=== PATIENT | female | born 1995 | race Caucasian/White ===

== ENCOUNTER 2020-06-21 03:14 | Inpatient (IN) | payer BC, SELFPAY ==
[2020-06-21] VITALS (8 sets, daily range): BP systolic 105–128; BP diastolic 55–87; PULSE 67–93; RESP 16–20; TEMP 36–37.2; O2SAT 93–97; BMI 32.9
--- NOTE | 2020-06-21 | ECG_ITS ---
Test Reason : PRE ADMISSION Blood Pressure : / mmHG Vent. Rate : 063 BPM Atrial Rate : 063 BPM P-R Int : 144 ms QRS Dur : 100 ms QT Int : 446 ms P-R-T Axes : 017 050 027 degrees QTc Int : 456 ms Normal sinus rhythm Early repolarization Normal ECG No previous ECGs available Referred By: Aniyah Dumont Electronically Signed By:JENNIFER BETTENCOURT MD
--- NOTE | 2020-06-21 04:49 | PC.NURSE ---
Anoop Campa, pt's dad can be reached at [phone].
--- NOTE | 2020-06-21 05:29 | ED_ITS ---
HPI - Psych General Chief Complaint: Psychiatric Symptoms Stated Complaint: section 12 Time Seen by Provider: 06/21/20 05:25 Source: patient and EMS Mode of arrival: EMS Limitations: no limitations History of Present Illness HPI Narrative: patient comes to the emergency room, accompanied by [facility] police department and under Section 12. patient states that she has a plan of overdosing. Prior to arrival patient use half pack of heroin. MD complaint: suicidal ideation Related Data Home Medications Medication Instructions Recorded Confirmed clonidine HCl 0.2 mg PO BEDTIME 06/21/20 06/21/20 clonidine HCl 0.2 mg PO BID PRN 06/21/20 06/21/20 dextroamphetamine-amphetamine 20 mg PO TID 06/21/20 06/21/20 gabapentin 400 mg PO DAILY 06/21/20 06/21/20 gabapentin 800 mg PO BEDTIME 06/21/20 06/21/20 hydroxyzine pamoate 25 mg PO BID PRN 06/21/20 06/21/20 lorazepam 0.5 mg PO DAILY PRN 06/21/20 06/21/20 ropinirole 3 mg PO BEDTIME 06/21/20 06/21/20 sodium fluoride-pot nitrate 1 applic DENTAL BID 06/21/20 06/21/20 [PreviDent 5000 Sensitive] topiramate 50 mg PO BEDTIME 06/21/20 06/21/20 valacyclovir 500 mg PO DAILY 06/21/20 06/21/20 venlafaxine 75 mg PO DAILY 06/21/20 06/21/20 Allergies Allergy/AdvReac Type Severity Reaction Status Date / Time amoxicillin [From AUGMENTIN] Allergy Unknown HIVES Verified 06/21/20 03:47 clavulanic acid Allergy Unknown HIVES Verified 06/21/20 03:47 [From AUGMENTIN] nitrofurantoin Allergy Unknown HIVES Verified 06/21/20 03:47 [From MACROBID] Review of Systems Review of Systems: Constitutional : No Weight loss, No Fever, No Chills, No Night Sweats, No Fatigue, No Malaise ENT/Mouth : No Hearing loss, No Ear Pain, No Nasal Congestion, No Sinus Pain, No Hoarseness, No sore throat, No Rhinorrhea, No Swallowing Difficulty Eyes: No Eye Pain, No Swelling, No Redness, No Foreign Body, No Discharge, No Vision Changes Cardiovascular : No Chest Pain, No SOB, No Dyspnea on Exertion, No Orthopnea, No Edema, No Palpitations Respiratory : No Cough, No Sputum, No Wheezing, No Smoke Exposure, No Dyspnea Gastrointestinal : No Nausea, No Vomiting, No Diarrhea, No Constipation, No abdominal Pain, No Hematochezia, No Melena Genitourinary : no irregular bleeding, No Dysuria, No Urinary Frequency, No Hematuria, No Urinary Incontinence, No Urgency, No Flank Pain, No Urinary Flow Changes, No Hesitancy Musculoskeletal : No joint pain, No Myalgias, No Joint Swelling Skin : abrasion to right knee Neuro : No Weakness, No Numbness, No Paresthesias, No Loss of Consciousness, No Dizziness, No Headache Psych : depression, suicidal with plan Heme/Lymph: No Bruising, No Bleeding,No Lymphadenopathy Endocrine : No Polyuria, No Polydipsia, No Temperature Intolerance PMFSH Past Medical History Medical History Attention deficit disorder of adult with hyperactivity Endometriosis Gastroenteritis IVDU (intravenous drug user) Migraine Surgical History History of ankle surgery Social History Social History Alcohol intake: never Smoking Status: Current every day smoker Smoked in Last 30 Days: Yes Use of substances other than those prescribed or required for medical reasons: Yes Substance Use Type: Heroin and IV Drugs Substance Use Frequency: Daily Last Used Substance: Hours (ago) Advance Directives: No Advance Directives Information Provided: No Physical Exam Vital Signs: Vital Signs: Vital Signs Temp Pulse Resp BP Pulse Ox 06/21/20 03:33 98.2 F 93 18 116/79 97 Body Mass Index 32.9 Appearance: Alert. Oriented X3. No acute distress. Eyes: Pupils equal, round and reactive to light, mild horizontal nystagmus ENT: Pharynx normal. Neck: Normal inspection. Neck supple. No lymph nodes noted. No crepitus CVS: Normal heart rate and rhythm. Pulses normal. Normal S1 and S2 Respiratory: No respiratory distress. Breath sounds normal. No Wheezing. No rales Abdomen: Soft and nontender. No rigidity. No distention. good BS x4 Skin: Skin warm and dry. Normal skin color. Normal skin turgor. Extremities: No lower extremity edema. No lower extremity edema. No Lacerations. No Rash Neuro: Oriented X 3. No motor deficit. No sensory deficit. Moving all extermities. No slurred speech. Course Reevaluation(s) Reevaluation #1: when patient came in, she admitted to be suicidal, plan with o verluz marina, later patient changed her story that she is well and would like to go to rehab for drug addiction. [facility] consult pending. Sign-out given to Dr. Rodríguez [facility] - Psych Restraints Face to Face Assessment: Face to Face Assessment: Current Situation: After assessment of the patient, a review of the pertinent medical record and a discussion with nursing staff, I feel the patient requires a restrain intervention. Reaction To: [] Medical Condition: [] Behavioral State: [] Continued Need: [] Discharge Plan Discharge Clinical Impression: Suicidal ideation, Drug abuse Prescriptions: No Action venlafaxine 75 mg capsule,extended release 24hr 75 mg PO DAILY RF: 0 ropinirole 1 mg tablet 3 mg PO BEDTIME RF: 0 gabapentin 400 mg capsule 400 mg PO DAILY RF: 0 valacyclovir 500 mg tablet 500 mg PO DAILY RF: 0 clonidine HCl 0.2 mg tablet 0.2 mg PO BID PRN (Reason: Anxiety) RF: 0 lorazepam 0.5 mg tablet 0.5 mg PO DAILY PRN (Reason: Anxiety) RF: 0 dextroamphetamine-amphetamine 20 mg tablet 20 mg PO TID RF: 0 hydroxyzine pamoate 25 mg capsule 25 mg PO BID PRN (Reason: Anxiety) RF: 0 topiramate 50 mg tablet 50 mg PO BEDTIME RF: 0 sodium fluoride-pot nitrate [PreviDent 5000 Sensitive] 1.1-5 % paste 1 applic dental BID RF: 0 clonidine HCl 0.1 mg tablet extended release 12 hr 0.2 mg PO BEDTIME RF: 0 gabapentin 800 mg Tablet 800 mg PO BEDTIME RF: 0
--- NOTE | 2020-06-21 07:05 | PC.NURSE ---
RECEIVED REPORT FROM KADY JONES. PT SLEEPING ON BED IN POSITION OF COMFORT. SKIN WPD. RESPIRATIONS EVEN AND NON LABORED.
--- NOTE | 2020-06-21 07:10 | PC.NURSE ---
CALLED PHLEBOTOMY FOR LAB DRAW.
[2020-06-21 08:39] LABS: Ethanol < 10 mg/dL
[2020-06-21 09:12] LABS: Appearance Urine CLEAR; Color Urine AMBER; Glucose Urine UA NEG (NEG); Leukocyte Esterase Urine NEG (NEG); Nitrite Urine NEG (NEG); Specific Gravity - Urine >= 1.030 (1.005-1.025); Urine Blood NEG (NEG); Urine Ketones NEG (NEG); Urine Protein NEG (NEG-TRACE)
[2020-06-21 09:13] LABS: UPreg QC Valid YES; Urine Pregnancy NEGATIVE (NEGATIVE)
[2020-06-21 09:35] LABS: Amphetamine Screen Urine Not Detected (Not Detect); Barbiturates, Urine Not Detected (Not Detect); Benzodiazepines Screen Urine POSITIVE (Not Detect); Cannabinoid Screen Urine Not Detected (Not Detect); Cocaine Screen Urine POSITIVE (Not Detect); Opiate Screen Urine POSITIVE (Not Detect); Phencyclidine Screen Urine Not Detected (Not Detect)
--- NOTE | 2020-06-21 10:40 | PC.NURSE ---
PT ANGRY, STATES SHE HAS A DETOX BED RESERVED AT [facility] IN [place] AND WILL NOT BE HOME IN TIME TO GET A RIDE THERE FOR 1500 IF SHE DOES NOT LEAVE. PT ABLE TO BE DE-ESCELATED AND RE-DIRECTED. PT NOW IN ROOM RESTING QUIETLY. NOE FROM [facility] EVALUATED PT, SPOKE WITH [facility] AND PT'S FATHER AND WORKING ON PLAN. PT ALERT AND ORIENTED X4. DENIES SI, HI.
--- NOTE | 2020-06-21 13:17 | MHC.CARE ---
Addendum entered by Jackie Botello [facility] 06/21/20 13:28: Father Johnathan [phone] Original Note: CARE team assessed patient following an intentional overdose on heroin and spoke at length to her family about their concerns. Patient is considered unsafe to discharge following a suicide attempt, she has been accepted to and will remain in the ED until she transferred. Involuntary for this level of care, she will be able to sign in voluntarily if she wishes but otherwise will be admitted on a section 12B. Patient does not want staff to communicate information to her family at this time.
--- NOTE | 2020-06-21 14:11 | PC.NURSE ---
PT SITTING AT DESK IN ROOM, ATTEMPTING TO EAT LUNCH, BUT FREQUENTLY NODDING OFF. WILL CONTINUE TO MONITOR.
--- NOTE | 2020-06-21 15:56 | PC.NURSE ---
Report from Comfort RN, per report COVID swab and EKG necessary for admission to . Verbal order for COVID swab obtained from Aniyah GRIFFITH. COVID swab obtained with some difficulty, pt initially resistant to having swab done I don't want to be admitted, I want to go home pt educated that this was not an option at this time and that it would only serve to facilitate her care if she allowed this RN to do the swab. Plan to revisit EKG with patient in a little while.
--- NOTE | 2020-06-21 16:47 | PC.NURSE ---
Pt noted to have intermittent episodes of lethargy, nodding off frequently. Provider Aniyah GRIFFITH aware, charge account authorizer made aware. Security notified to check the tapes for any sign of patient taking any substances while in pod. Pt frequently being monitored at this time by this RN via watching camera and checking at the door. Currently pt standing in the middle of her room watching tv. Pt is aware of plan to go to [facility].
[2020-06-21 16:54] LABS: SARS COV2 PCR INHOUSE NEGATIVE (Negative)
--- NOTE | 2020-06-21 22:54 | PC.NURSE ---
Patient reported withdrawing from heroin, vitals assess were WNL, BP 128/87, P 75, asymptomatic of withdrawal clinically, patient claims otherwise. Will continue to monitor.
[2020-06-21] MEDS: Gabapentin 400 MG CAPSULE 800 MG PO (23:21)
[2020-06-21] MEDS: cloNIDine HCL 0.2 MG TABLET PO (23:21)
[2020-06-21] MEDS: LORazepam 0.5 MG TABLET PO (23:22)
--- NOTE | 2020-06-21 23:50 | PC.NURSE ---
Patient demanding medication besides her HS PO medication. Refused her Adderall, Requip not available, pharmacy closed, patient on phone complaining loud how her withdrawal are not be treated here. Vital signs assessed, HR 68 BP 125/81, R 18. Will continue to monitor.
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
[2020-06-22 07:02] VITALS: BP 94/44; PULSE 54; RESP 12; TEMP 35.8; O2SAT 96
[2020-06-22] MEDS: Venlafaxine HCl ER 75 MG CAP.ER.24H PO (08:59)
[2020-06-22] MEDS: Gabapentin 400 MG CAPSULE PO (08:59)
[2020-06-22] MEDS: Nicotine 14 MG PATCH.TD24 TRANSDERMA (09:00)
--- NOTE | 2020-06-22 09:55 | PC.NURSE ---
PT SIGNED A 3 DAY NOTICE, UP ON 06/27
[2020-06-22 11:46] VITALS: BMI 34.3
[2020-06-22] MEDS: Buprenorphine/Naloxone 4/1 mg FILM 1 FILM SUBLINGUAL ×4 (12:01→18:03)
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
[2020-06-22] MEDS: LORazepam 1 MG TABLET 2 MG PO (14:36)
[2020-06-22 16:05] VITALS: BP 122/80; PULSE 77; TEMP 36.9
[2020-06-22 16:56] VITALS: BP 122/80; PULSE 77
[2020-06-22] MEDS: cloNIDine HCL 0.1 MG TABLET PO (16:56)
[2020-06-22] MEDS: hydrOXYzine HCL 25 MG TABLET 50 MG PO (16:56)
[2020-06-22] MEDS: rOPINIRole HCL 1 MG TABLET 3 MG PO (21:59)
[2020-06-22 22:00] VITALS: BP 133/63; PULSE 68
[2020-06-22] MEDS: Gabapentin 400 MG CAPSULE 800 MG PO (22:00)
[2020-06-22] MEDS: Topiramate 25 MG TABLET 50 MG PO (22:00)
[2020-06-22 22:20] VITALS: BP 133/63; PULSE 68
[2020-06-22] MEDS: cloNIDine HCL 0.2 MG TABLET PO (22:20)
[2020-06-23 06:40] VITALS: BP 108/61; PULSE 67; RESP 18; TEMP 36.2
[2020-06-23 07:44] LABS: MANUAL DIFF FLAG NO
[2020-06-23 07:58] LABS: Basophils Percent Auto 0.3 % (0-2); Eosinophils Percent Auto 0.3 % (0-4); Hematocrit 42.2 % (37-47); Hemoglobin 14.1 g/dl (12.0-16.0); Imm Gran Abs Auto 0.03 X10*3/uL (0.00-0.03); Imm Gran Pct Auto 0.3 % (0.0-0.4); Lymphocytes Absolute Auto 2.6 X10*3/uL (1.2-4.9); Lymphocytes Percent Auto 26.3 % (20-40); Mean Corpuscular HGB Conc 33.4 g/dl (31.0-35.0); Mean Corpuscular Hemoglobin 29.5 pg (27.0-33.0); Mean Corpuscular Volume 88.3 fL (80-98); Mean Platelet Volume 10.9 fL (9.4-12.3); Monocytes Absolute Auto 0.7 X10*3/uL (0.1-1.2); Monocytes Percent Auto 6.8 % (2-11); Neutrophils Absolute Auto 6.6 X10*3/uL (2.0-8.3); Platelet Count 357 X10*3/uL (160-400); Red Blood Count 4.78 X10*6/uL (4.20-5.50); Red Cell Distribution Width 12.3 % (11.0-16.0)
[2020-06-23 08:26] LABS: Alanine Aminotransferase 45 U/L (0-31); Albumin Level 4.1 g/dL (3.5-5.0); Alkaline Phosphatase 131 U/L (39-117); Anion Gap 13 (12-20); Aspartate Amino Transferase 22 U/L (5-31); Blood Urea Nitrogen 9 mg/dL (9-16); Calcium 9.5 mg/dL (8.4-10.2); Carbon Dioxide 28 mmol/L (22-29); Chloride 102 mmol/L (96-108); Creatinine Clr Calc Pharmacy 117.6; Estimated Glomerular Filt Rate > 60; Glucose Fasting 99 mg/dL (60-99); Potassium 3.9 mmol/l (3.3-5.1); Sodium 139 mmol/L (135-145); Total Protein 7.3 g/dL (6.5-8.0)
[2020-06-23 08:40] LABS: Thyroid Stimulating Hormone 0.34 mIU/mL (0.32-4.0)
[2020-06-23] MEDS: Venlafaxine HCl ER 75 MG CAP.ER.24H PO (09:36)
[2020-06-23] MEDS: Buprenorphine/Naloxone 8/2 mg FILM 1 FILM SUBLINGUAL (09:36)
[2020-06-23] MEDS: Gabapentin 400 MG CAPSULE PO ×2 (09:37→20:18)
[2020-06-23] MEDS: Amphetamine Mixed Salts 20 MG TABLET PO (09:37)
[2020-06-23] MEDS: LORazepam 0.5 MG TABLET 1 MG PO ×3 (11:51→20:30)
[2020-06-23 12:00] VITALS: BP 133/82; PULSE 65; TEMP 36.2
[2020-06-23 16:00] VITALS: BP 118/76; PULSE 61; TEMP 36.5
[2020-06-23] MEDS: Buprenorphine/Naloxone 4/1 mg FILM 1 FILM SUBLINGUAL (16:35)
[2020-06-23 18:58] VITALS: BP 133/81; PULSE 64; TEMP 36.8
[2020-06-23] MEDS: Topiramate 25 MG TABLET 50 MG PO (20:17)
[2020-06-23] MEDS: rOPINIRole HCL 1 MG TABLET 3 MG PO (20:17)
[2020-06-23] MEDS: cloNIDine HCL 0.2 MG TABLET PO (20:18)
[2020-06-23] MEDS: Gabapentin 400 MG CAPSULE 800 MG PO (22:15)
--- NOTE | 2020-06-23 23:25 | P.PNPSI_ITS ---
Subjective Subjective Reason For Visit: section 12/DEPRESSION ?OD SUB ABUSE Subjective Notes: Conditional Voluntary Interim History: patient dealing with shame had relapse with opiates and cocaine depressed had reported transient self-harming thoughts difficulty tox Medication Compliance: Yes Mental Status Exam Mental Status Exam Patient Appearance: Disheveled Patient Orientation: Person, Place and Time Level of Consciousness: Appropriate and Combative Patient Behavior: Anxious, Good Eye Contact, Crying and Uncooperative Mood Description: Anxious, Labile and Angry Affect Description: Angry Patient Cognition Impaired: No Ability to Follow Directions: Fair Speech Pattern: Pressured Memory Description: Intact Diagnostics Vital Signs (24Hr): Vital Signs - 24 hr 06/23/20 06:40 06/23/20 12:00 06/23/20 16:00 Temperature 97.1 F 97.1 F 97.7 F Pulse Rate 67 65 61 Respiratory Rate 18 Blood Pressure 108/61 133/82 118/76 06/23/20 18:58 Temperature 98.3 F Pulse Rate 64 Respiratory Rate Blood Pressure 133/81 Body Mass Index 34.3 Labs Results: 06/23/20 07:39 06/23/20 07:39 Labs: Laboratory Results - last 48 hr 06/23/20 06/23/20 07:39 07:39 WBC 10.0 RBC 4.78 Hgb 14.1 Hct 42.2 MCV 88.3 MCH 29.5 MCHC 33.4 RDW 12.3 Plt Count 357 MPV 10.9 Immature Gran % (Auto) 0.3 Neut % (Auto) 66.0 Lymph % (Auto) 26.3 [place] % (Auto) 6.8 Eos % (Auto) 0.3 Baso % (Auto) 0.3 Lymph # (Auto) 2.6 [place] # (Auto) 0.7 Eos # (Auto) 0.0 Baso # (Auto) 0.0 Abs Immat Gran (auto) 0.03 Absolute Neuts (auto) 6.6 Absolute Nucleated RBC 0.000 Nucleated RBC % (auto) 0.0 Sodium 139 Potassium 3.9 Chloride 102 Carbon Dioxide 28 Anion Gap 13 BUN 9 Creatinine 0.74 Estim Creat Clear Calc 117.6 Estimated GFR > 60 Fasting Glucose 99 Calcium 9.5 Total Bilirubin 1.0 AST 22 ALT 45 H Alkaline Phosphatase 131 H Total Protein 7.3 Albumin 4.1 TSH 0.34 Medications Medications Current Medications Generic Name Dose Route Start Last Admin Trade Name Freq PRN Reason Stop Dose Admin Acetaminophen 650 mg 06/22/20 05:52 Acetaminophen 325 Mg Tablet PO Q6H PRN Headache/Pain Mild Scale (1-3) Al Hydroxide/Mg Hydroxide 30 ml 06/22/20 05:52 Magnesium Hydrox/Alum Hydrox 30 Ml Oral.Susp PO Q6H PRN Heartburn/Nausea Amphetamine/Dextroamphetamine 20 mg 06/21/20 23:15 06/23/20 20:29 Amphetamine Mixed Salts 20 Mg Tablet PO Not Given TID JAMISON Buprenorphine/Naloxone 1 film 06/23/20 09:00 06/23/20 09:36 Buprenorphine/Naloxone 8/2 Mg Film SUBLINGUAL 1 film DAILY JAMISON Administration Buprenorphine/Naloxone 1 tab 06/24/20 17:00 Buprenorphine/Naloxone 8/2 Mg Tab.Subl SUBLINGUAL DAILY@1700 JAMISON Clonidine HCl 0.1 mg 06/22/20 06:08 06/22/20 16:56 Clonidine Hcl 0.1 Mg Tablet PO 0.1 mg Q4H PRN Administration anxiety/restlessness Protocol Clonidine HCl 0.2 mg 06/22/20 22:15 06/23/20 20:18 Clonidine Hcl 0.2 Mg Tablet PO 0.2 mg BEDTIME JAMISON Administration Protocol Gabapentin 400 mg 06/22/20 09:00 06/23/20 20:18 Gabapentin 400 Mg Capsule PO 400 mg DAILY JAMISON Administration Gabapentin 800 mg 06/21/20 23:15 06/23/20 22:15 Gabapentin 400 Mg Capsule PO 800 mg BEDTIME JAMISON Administration Hydroxyzine HCl 50 mg 06/22/20 14:23 06/22/20 16:56 Hydroxyzine Hcl 25 Mg Tablet PO 50 mg RQ4H PRN Administration anxiety/restlessness Lorazepam 1 mg 06/22/20 14:23 06/23/20 20:30 Lorazepam 0.5 Mg Tablet PO 1 mg Q4H PRN Administration Anxiety Magnesium Hydroxide 30 ml 06/22/20 05:52 Milk Of Magnesia 30 Ml Oral.Susp PO DAILY PRN Constipation Nicotine 14 mg 06/22/20 09:00 06/23/20 09:38 Nicotine 14 Mg Patch.Td24 TRANSDERMA Not Given DAILY JAMISON Nicotine Polacrilex 2 mg 06/22/20 05:52 Nicotine Polacrilex 2 Mg Gum BUCCAL Q2H PRN Nicotine Cravings Non-Formulary Medication 1 applic 06/21/20 23:15 06/22/20 00:33 Sodium Fluoride-Pot Nitrate [Prevident 5000 Sensitive] DENTAL Not Given BID JAMISON Non-Formulary Medication 50 mg 06/21/20 23:15 06/22/20 00:34 Topiramate PO Not Given BEDTIME JAMISON Ondansetron HCl 4 mg 06/22/20 13:26 06/22/20 13:58 Ondansetron Odt 4 Mg Tab.Rapdis TRANSLINGU 4 mg Q6H PRN Administration Nausea Ropinirole HCl 3 mg 06/21/20 23:15 06/23/20 20:17 Ropinirole Hcl 1 Mg Tablet PO 3 mg BEDTIME JAMISON Administration Topiramate 50 mg 06/22/20 21:00 06/23/20 20:17 Topiramate 25 Mg Tablet PO 50 mg BEDTIME JMAISON Administration Trazodone HCl 50 mg 06/22/20 05:52 Trazodone Hcl 50 Mg Tablet PO BEDTIME PRN Insomnia Valacyclovir HCl 500 mg 06/22/20 09:00 06/23/20 09:37 Valacycyclovir Hcl 500 Mg Tablet PO 500 mg DAILY JAMISON Administration Venlafaxine HCl 75 mg 06/22/20 09:00 06/23/20 09:36 Venlafaxine Hcl Er 75 Mg Cap.Er.24h PO 75 mg DAILY JAMISON Administration Allergies Allergies Allergy/AdvReac Type Severity Reaction Status Date / Time amoxicillin [From AUGMENTIN] Allergy Unknown HIVES Verified 06/21/20 03:47 clavulanic acid Allergy Unknown HIVES Verified 06/21/20 03:47 [From AUGMENTIN] nitrofurantoin Allergy Unknown HIVES Verified 06/21/20 03:47 [From MACROBID] Assessment & Plan Assessment & Plan (1) Opioid use disorder: Status: Acute Code(s): F11.99 - Opioid use, unspecified with unspecified opioid-induced disorder (2) Major depression: Qualifiers: Major depression recurrence: recurrent Active/Remission status: currently active Major depression episode severity: severe Status: Acute Code(s): F32.9 - Major depressive disorder, single episode, unspecified Assessment and Plan: Suboxone for WD Ativan for WD CT home medication Consider [facility] collateral history patient needs much reassurance and support Greater than 50% of the session was spent on counseling and/or coordination of care
[2020-06-24 06:48] VITALS: BP 126/67; PULSE 58; RESP 18; TEMP 36.4
[2020-06-24] MEDS: Venlafaxine HCl ER 75 MG CAP.ER.24H PO (09:07)
[2020-06-24] MEDS: Gabapentin 400 MG CAPSULE PO (09:07)
[2020-06-24] MEDS: Buprenorphine/Naloxone 8/2 mg FILM 1 FILM SUBLINGUAL (09:07)
[2020-06-24 12:22] VITALS: BP 118/59; PULSE 64
[2020-06-24 16:00] VITALS: BP 121/69; PULSE 54; TEMP 36.3
[2020-06-24] MEDS: Buprenorphine/Naloxone 8/2 mg TAB.SUBL 1 TAB SUBLINGUAL (16:16)
[2020-06-24 16:18] VITALS: BP 121/69; PULSE 54; TEMP 36.3
[2020-06-24] MEDS: LORazepam 0.5 MG TABLET 1 MG PO ×2 (18:00→21:59)
[2020-06-24 19:17] VITALS: BP 125/75; PULSE 61; TEMP 36.4
[2020-06-24] MEDS: rOPINIRole HCL 1 MG TABLET 3 MG PO (20:37)
[2020-06-24] MEDS: Gabapentin 400 MG CAPSULE 800 MG PO (20:38)
[2020-06-24 20:39] VITALS: BP 125/75; PULSE 61
[2020-06-24] MEDS: cloNIDine HCL 0.2 MG TABLET PO (20:39)
[2020-06-24] MEDS: Topiramate 25 MG TABLET 50 MG PO (20:39)
--- NOTE | 2020-06-24 23:18 | HO.PSYCHPN ---
Subjective Subjective Reason For Visit: section 12/DEPRESSION ?OD SUB ABUSE Subjective Notes: Conditional Voluntary Medication Compliance: Yes Side effects from medications: Yes Attending Groups: No Mental Status Exam Mental Status Exam Patient Appearance: Well Grooomed Patient Orientation: Person, Place and Time Level of Consciousness: Appropriate Patient Behavior: Appropriate and Good Eye Contact Mood Description: Calm Affect Description: Calm Patient Cognition Impaired: No Ability to Follow Directions: Fair Speech Pattern: Clear and Spontaneous Speech Memory Description: Intact Hallucinations: None Delusions: Not Present Thought Process: Intact and Goal Oriented Thought Content: positive for Intact, negative for Suicidal Ideation and negative for Homicidal Ideation Judgement: Good Diagnostics Vital Signs (24Hr): Vital Signs - 24 hr 06/24/20 06:48 06/24/20 12:22 06/24/20 16:00 Temperature 97.6 F 97.4 F Pulse Rate 58 64 54 Respiratory Rate 18 Blood Pressure 126/67 118/59 L 121/69 06/24/20 16:18 06/24/20 19:17 06/24/20 20:39 Temperature 97.4 F 97.6 F Pulse Rate 54 61 61 Respiratory Rate Blood Pressure 121/69 125/75 125/75 Body Mass Index 34.3 Labs Results: 06/23/20 07:39 06/23/20 07:39 Labs: Laboratory Results - last 48 hr 06/23/20 06/23/20 07:39 07:39 WBC 10.0 RBC 4.78 Hgb 14.1 Hct 42.2 MCV 88.3 MCH 29.5 MCHC 33.4 RDW 12.3 Plt Count 357 MPV 10.9 Immature Gran % (Auto) 0.3 Neut % (Auto) 66.0 Lymph % (Auto) 26.3 [place] % (Auto) 6.8 Eos % (Auto) 0.3 Baso % (Auto) 0.3 Lymph # (Auto) 2.6 [place] # (Auto) 0.7 Eos # (Auto) 0.0 Baso # (Auto) 0.0 Abs Immat Gran (auto) 0.03 Absolute Neuts (auto) 6.6 Absolute Nucleated RBC 0.000 Nucleated RBC % (auto) 0.0 Sodium 139 Potassium 3.9 Chloride 102 Carbon Dioxide 28 Anion Gap 13 BUN 9 Creatinine 0.74 Estim Creat Clear Calc 117.6 Estimated GFR > 60 Fasting Glucose 99 Calcium 9.5 Total Bilirubin 1.0 AST 22 ALT 45 H Alkaline Phosphatase 131 H Total Protein 7.3 Albumin 4.1 TSH 0.34 Medications Medications Current Medications Generic Name Dose Route Start Last Admin Trade Name Freq PRN Reason Stop Dose Admin Acetaminophen 650 mg 06/22/20 05:52 Acetaminophen 325 Mg Tablet PO Q6H PRN Headache/Pain Mild Scale (1-3) Al Hydroxide/Mg Hydroxide 30 ml 06/22/20 05:52 Magnesium Hydrox/Alum Hydrox 30 Ml Oral.Susp PO Q6H PRN Heartburn/Nausea Amphetamine/Dextroamphetamine 20 mg 06/21/20 23:15 06/24/20 20:38 Amphetamine Mixed Salts 20 Mg Tablet PO Not Given TID JAMISON Buprenorphine/Naloxone 1 film 06/23/20 09:00 06/24/20 09:07 Buprenorphine/Naloxone 8/2 Mg Film SUBLINGUAL 1 film DAILY JAMISON Administration Buprenorphine/Naloxone 1 tab 06/24/20 17:00 06/24/20 16:16 Buprenorphine/Naloxone 8/2 Mg Tab.Subl SUBLINGUAL 1 tab DAILY@1700 JAMISON Administration Clonidine HCl 0.1 mg 06/22/20 06:08 06/22/20 16:56 Clonidine Hcl 0.1 Mg Tablet PO 0.1 mg Q4H PRN Administration anxiety/restlessness Protocol Clonidine HCl 0.2 mg 06/22/20 22:15 06/24/20 20:39 Clonidine Hcl 0.2 Mg Tablet PO 0.2 mg BEDTIME JAMISON Administration Protocol Gabapentin 400 mg 06/22/20 09:00 06/24/20 09:07 Gabapentin 400 Mg Capsule PO 400 mg DAILY JAMISON Administration Gabapentin 800 mg 06/21/20 23:15 06/24/20 20:38 Gabapentin 400 Mg Capsule PO 800 mg BEDTIME JAMISON Administration Hydroxyzine HCl 50 mg 06/22/20 14:23 06/22/20 16:56 Hydroxyzine Hcl 25 Mg Tablet PO 50 mg RQ4H PRN Administration anxiety/restlessness Lorazepam 1 mg 06/22/20 14:23 06/24/20 21:59 Lorazepam 0.5 Mg Tablet PO 1 mg Q4H PRN Administration Anxiety Magnesium Hydroxide 30 ml 06/22/20 05:52 Milk Of Magnesia 30 Ml Oral.Susp PO DAILY PRN Constipation Nicotine 14 mg 06/22/20 09:00 06/24/20 09:15 Nicotine 14 Mg Patch.Td24 TRANSDERMA Not Given DAILY JAMISON Nicotine Polacrilex 2 mg 06/22/20 05:52 Nicotine Polacrilex 2 Mg Gum BUCCAL Q2H PRN Nicotine Cravings Non-Formulary Medication 1 applic 06/21/20 23:15 06/22/20 00:33 Sodium Fluoride-Pot Nitrate [Prevident 5000 Sensitive] DENTAL Not Given BID JAMISON Non-Formulary Medication 50 mg 06/21/20 23:15 06/22/20 00:34 Topiramate PO Not Given BEDTIME JAMISON Ondansetron HCl 4 mg 06/22/20 13:26 06/22/20 13:58 Ondansetron Odt 4 Mg Tab.Rapdis TRANSLINGU 4 mg Q6H PRN Administration Nausea Ropinirole HCl 3 mg 06/21/20 23:15 06/24/20 20:37 Ropinirole Hcl 1 Mg Tablet PO 3 mg BEDTIME JAMISON Administration Topiramate 50 mg 06/22/20 21:00 06/24/20 20:39 Topiramate 25 Mg Tablet PO 50 mg BEDTIME JAMISON Administration Trazodone HCl 50 mg 06/22/20 05:52 Trazodone Hcl 50 Mg Tablet PO BEDTIME PRN Insomnia Valacyclovir HCl 500 mg 06/22/20 09:00 06/24/20 09:07 Valacycyclovir Hcl 500 Mg Tablet PO 500 mg DAILY JAMISON Administration Venlafaxine HCl 75 mg 06/22/20 09:00 06/24/20 09:07 Venlafaxine Hcl Er 75 Mg Cap.Er.24h PO 75 mg DAILY JAMISON Administration Allergies Allergies Allergy/AdvReac Type Severity Reaction Status Date / Time amoxicillin [From AUGMENTIN] Allergy Unknown HIVES Verified 06/21/20 03:47 clavulanic acid Allergy Unknown HIVES Verified 06/21/20 03:47 [From AUGMENTIN] nitrofurantoin Allergy Unknown HIVES Verified 06/21/20 03:47 [From MACROBID] Assessment & Plan Assessment & Plan (1) Major depression: Qualifiers: Major depression recurrence: recurrent Active/Remission status: currently active Major depression episode severity: severe Status: Acute Code(s): F32.9 - Major depressive disorder, single episode, unspecified (2) Opioid use disorder: Status: Acute Code(s): F11.99 - Opioid use, unspecified with unspecified opioid-induced disorder Assessment and Plan: inc suboxone cont ssri Greater than 50% of the session was spent on counseling and/or coordination of care Patient educated on: diagnosis and medication risk/benefits Reason for contiued inpatient stay Substantial Risk for: inability to function
[2020-06-25 06:13] VITALS: BP 111/64; PULSE 62; RESP 16; TEMP 36.2; O2SAT 96
[2020-06-25] MEDS: Venlafaxine HCl ER 75 MG CAP.ER.24H PO (09:00)
[2020-06-25] MEDS: Gabapentin 400 MG CAPSULE PO (09:00)
[2020-06-25] MEDS: Buprenorphine/Naloxone 8/2 mg FILM 1 FILM SUBLINGUAL (09:01)
[2020-06-25 09:37] VITALS: BP 111/64; PULSE 62
[2020-06-25] MEDS: cloNIDine HCL 0.1 MG TABLET PO ×2 (09:37→12:59)
[2020-06-25] MEDS: LORazepam 0.5 MG TABLET 1 MG PO ×2 (09:37→12:59)
[2020-06-25 12:59] VITALS: BP 111/64; PULSE 62
[2020-06-25] MEDS: Naloxone HCl Nasal TAKE HOME 4 MG SPRAY NOSTRILALT (12:59)
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
== END 2020-06-25 13:30 | DRG 754 ==
LOC: HO.ED 23:44 → HO.PM5 06-22 00:04
PROVIDERS: Admitting Provider Psychiatry & Neurology Psychiatry; Emergency Provider Emergency Medicine; Visit Provider Psychiatry & Neurology Psychiatry
DX: F32.9 Major depressive disorder, single episode, unspecified (principal); F11.20 Opioid dependence, uncomplicated; F90.9 Attention-deficit hyperactivity disorder, unspecified type; F17.210 Nicotine dependence, cigarettes, uncomplicated; Z71.6 Tobacco abuse counseling; Z20.828 Contact with and (suspected) exposure to other viral communicable diseases; Z88.0 Allergy status to penicillin; Z79.899 Other long term (current) drug therapy
CPT/HCPCS: 36415; 80053; 80307; 80320; 81003; 81025; 84443; 85025; 87635; 93005; 99232; 99285; J0573; J0574

== ENCOUNTER 2020-10-13 22:58 | Emergency (ER) | payer BC, SELFPAY ==
--- NOTE | ~2020-10-13 | CT_ITS ---
EXAMINATION: CT HEAD WITHOUT CONTRAST CLINICAL INFORMATION: Trauma. Fall. COMPARISON: None. TECHNIQUE: Contiguous helical images of the brain were obtained without IV contrast. Multiplanar reconstructions were performed. DLP: 687 mGy-cm. FINDINGS: There are no pathologic extra-axial fluid collections. The lateral, third, fourth ventricles are nondilated and concordant with the appearance of the sulci. There is no evidence for acute intraparenchymal hemorrhage or infarct. There is neither mass nor mass effect. There is no shift of midline structures. The paranasal sinuses and mastoid air cells are clear. There are no osseous lesions. CT/CT head/brain wo con IMPRESSION: No evidence for acute intracranial injury. Automated exposure control (Care Dose) Adjustment of the mA and/or kv according to patient size (this includes techniques or standardized protocols for targeted exams where dose is matched to indication / reason for exam; i.e. extremities or head).
[2020-10-13 23:11] VITALS: BP 126/70; BP 127/79; PULSE 112; PULSE 88; RESP 15; TEMP 37.2; O2SAT 96; O2SAT 98; BMI 32.8
--- NOTE | 2020-10-13 23:28 | ED_ITS ---
HPI - Headache General Chief Complaint: Syncope Stated Complaint: fall Time Seen by Provider: 10/13/20 23:15 Source: patient Mode of arrival: ambulatory Limitations: no limitations History of Present Illness HPI Narrative: Patient's history of seizures in the past, she is off seizure medication for last 10 years and did not have any seizures for last 10 years today around 14:00 patient was feeling funny and next thing she noticed after few hours as she is on the floor patient was alone at that time likely she had a seizure and she fell complaining of headache and vomited 2 times when she woke up and was feeling that head was underwater. Prior to this episode patient was doing good in the morning without any significant complaints denied any tongue bite or incontinence patient does have a history of migraine headaches feels sensitive to light patient and use of any tramadol/Wellbutrin/cocaine MD elicited complaint: headache Related Data Home Medications Medication Instructions Recorded Confirmed ropinirole 3 mg PO BEDTIME 06/21/20 09/11/20 sodium fluoride-pot nitrate 1 applic DENTAL BID 06/21/20 09/11/20 [PreviDent 5000 Sensitive] topiramate 50 mg PO BEDTIME 06/21/20 09/11/20 clonidine HCl 0.1 mg 0 mg PO 09/10/20 09/11/20 tablet,extended release,12 hr doxepin 50 mg capsule mg PO 09/10/20 09/11/20 naltrexone microspheres 380 mg mg IM 09/10/20 09/11/20 intramuscular suspension,extended release Previous Rx's Medication Instructions Recorded acetaminophen 650 mg PO Q6H PRN #1 tab 06/25/20 aluminum-magnesium hydroxide 30 ml PO Q6H PRN #1 ml 06/25/20 [MAG-AL] buprenorphine-naloxone 1 tab SUBLINGUAL DAILY@1700 #1 tab 06/25/20 buprenorphine-naloxone [Suboxone] 1 film SUBLINGUAL DAILY #1 ea 06/25/20 gabapentin 400 mg PO DAILY #1 cap 06/25/20 lorazepam 1 mg PO Q4H PRN #1 tab 06/25/20 magnesium hydroxide [Milk of 30 ml PO DAILY PRN #1 ml 06/25/20 Magnesia] nicotine (polacrilex) 2 mg BUCCAL Q2H PRN #1 ea 06/25/20 valacyclovir 500 mg PO DAILY #1 tab 06/25/20 aripiprazole 2 mg tablet 5 mg PO DAILY 30 Days #75 tab 09/18/20 clonidine HCl 0.1 mg tablet 0.1 mg PO Q4H PRN #1 tab 09/18/20 clonidine HCl 0.2 mg tablet 0.2 mg PO BEDTIME #1 tab 09/18/20 dextroamphetamine-amphetamine 20 20 mg PO TID 30 Days #90 tab 09/18/20 mg tablet gabapentin 800 mg tablet 800 mg PO BEDTIME 90 Days #90 tab 09/18/20 hydroxyzine HCl 25 mg tablet 50 mg PO RQ4H PRN #1 tab 09/18/20 naratriptan 2.5 mg tablet 2.5 mg PO DIRECTED 60 Days #60 09/18/20 tab nicotine 14 mg/24 hr daily 14 mg TRANSDERMAL DAILY 1 Days #14 09/18/20 transdermal patch ea ondansetron 4 mg disintegrating 4 mg TRANSLINGUAL Q6H PRN #1 tab 09/18/20 tablet phenobarbital 30 mg tablet 60 mg PO TID 30 Days #180 tab 09/18/20 trazodone 50 mg tablet 50 mg PO BEDTIME PRN #1 tab 09/18/20 venlafaxine 37.5 mg 37.5 mg PO DAILY 30 Days #30 cap 09/18/20 capsule,extended release 24 hr venlafaxine 75 mg capsule,extended 75 mg PO DAILY 30 Days #30 cap 09/18/20 release 24 hr levetiracetam [Keppra] 500 mg PO BID #60 tab 10/14/20 Allergies Allergy/AdvReac Type Severity Reaction Status Date / Time amoxicillin [From AUGMENTIN] Allergy Unknown HIVES Verified 10/13/20 23:22 clavulanic acid Allergy Unknown HIVES Verified 10/13/20 23:22 [From AUGMENTIN] nitrofurantoin Allergy Unknown HIVES Verified 10/13/20 23:22 [From MACROBID] Review of Systems Review of Systems: Constitutional : No Weight loss, No Fever, No Chills ENT/Mouth : No sore throat, No Rhinorrhea Eyes: No Eye Pain, No Swelling Cardiovascular : No Chest Pain, no palpitations Respiratory : No Cough, No Sputum, no shortness of breath Gastrointestinal :+ Nausea, + Vomiting, No Diarrhea, No abdominal Pain, no black stools Genitourinary : No Dysuria, No Urinary Frequency Musculoskeletal : No joint pain, No Myalgias, No Joint Swelling Skin : No Skin Lesions, No rash Neuro : No Weakness, No Numbness, No Dizziness, + Headache Psych : No Anxiety/Panic, No Depression Heme/Lymph: No Bruising, No Lymphadenopathy Endocrine : No Polyuria, No Polydipsia All other systems reviewed and are negative [facility] Past Medical History Medical History (Updated 10/14/20 @ 01:53 by Adonis Sanchez MD) Attention deficit disorder of adult with hyperactivity Endometriosis Gastroenteritis IVDU (intravenous drug user) Migraine Physical exam Seizure Surgical History History of ankle surgery S/P Botox injection Social History Social History Household Members: Spouse Housing: Apartment Alcohol intake: unknown Smoking Status: Unknown if ever smoked Tobacco Type: Cigarette Packs Per Day: 0.5 Cigarettes Per Day: 10.0 Years Smoked: 6 years Second Hand Smoke Exposure: No Use of substances other than those prescribed or required for medical reasons: No Substance Use Type: Crack/Cocaine and Heroin Last Used Substance: Unknown Any prior treatment program specific to substance use: Yes Advance Directives: No Advance Directives Information Provided: No service: No Sexual orientation: Straight/Heterosexual Physical Exam Vital Signs: Vital Signs: Last Vital Signs Temp 99 F 10/13/20 23:11 Pulse 88 10/13/20 23:11 Resp 15 10/13/20 23:11 BP 126/70 10/13/20 23:11 Pulse Ox 98 10/13/20 23:11 Body Mass Index 32.8 Appearance: Alert. Oriented X3. No acute distress. Eyes: Pupils equal, round and reactive to light. ENT: Pharynx normal. Tongue normal head atraumatic normocephalic ears normal tympanic membrane intact bilaterally Neck: Normal inspection. Neck supple. CVS: Normal heart rate and rhythm. Pulses normal. Respiratory: No respiratory distress. Breath sounds normal. Abdomen: Soft and nontender. Bowel sounds are present, no mass palpable, no CVA tenderness Skin: Skin warm and dry. Normal skin color. Normal skin turgor. Extremities: No lower extremity edema. Neuro: Oriented X 3. No motor deficit. No sensory deficit. MDM - Headache MDM Narrative Medical decision making narrative: Patient likely had seizure with history of same in the past workup is negative patient denied any substance abuse at this time although she was positive for cocaine in 2019. CT scan is negative for any acute will discharge patient home on [facility] and advised to follow with neurologist Differential Diagnosis Differential diagnosis: Likely migraine Medical Records Attestation: I reviewed the patient's medical records. Lab Data Attestation: I reviewed the patient's lab results. Result diagrams: 10/14/20 00:23 10/14/20 00:23 Labs: Lab Results 10/14/20 10/14/20 Range/Units 00:23 00:23 WBC 15.4 H (4.8-10.8) X10*3/uL RBC 4.56 (4.20-5.50) X10*6/uL Hgb 13.7 (12.0-16.0) g/dl Hct 42.2 (37-47) % MCV 92.5 (80-98) fL MCH 30.0 (27.0-33.0) pg MCHC 32.5 (31.0-35.0) g/dl RDW 15.2 (11.0-16.0) % Plt Count 352 (160-400) X10*3/uL MPV 9.7 (9.4-12.3) fL Immature Gran % (Auto) 0.5 H (0.0-0.4) % Neut % (Auto) 75.3 H (45-73) % Lymph % (Auto) 17.6 L (20-40) % Desha % (Auto) 6.2 (2-11) % Eos % (Auto) 0.1 (0-4) % Baso % (Auto) 0.3 (0-2) % Lymph # (Auto) 2.7 (1.2-4.9) X10*3/uL Desha # (Auto) 1.0 (0.1-1.2) X10*3/uL Eos # (Auto) 0.0 (0.0-0.4) X10*3/uL Baso # (Auto) 0.0 (0.0-0.2) X10*3/uL Abs Immat Gran (auto) 0.08 H (0.00-0.03) X10*3/uL Absolute Neuts (auto) 11.6 H (2.0-8.3) X10*3/uL Absolute Nucleated RBC 0.000 (0.0-0.012) X10*3/uL Nucleated RBC % (auto) 0.0 (0.0-0.2) /100WBC Sodium 139 (135-145) mmol/L Potassium 4.1 (3.3-5.1) mmol/L Chloride 102 (96-108) mmol/L Carbon Dioxide 26 (22-29) mmol/L Anion Gap 15 (12-20) BUN 14 D (9-16) mg/dL Creatinine 0.86 (0.5-1.4) mg/dL Estim Creat Clear Calc 102.6 Estimated GFR > 60 Random Glucose 126 H (60-115) mg/dL Calcium 8.9 D (8.4-10.2) mg/dL Beta HCG, Quant < 2 mIU/mL ECG Data Attestation: I personally reviewed and interpreted this ECG as follows: Interpretation: Normal sinus rhythm heart rate 95 beats per minute normal intervals normal axis no acute ST T wave changes impression normal EKG Discharge Plan Discharge Clinical Impression: Seizure disorder Patient Disposition: Home, Self-Care Instructions: Epilepsy (ED) Additional Instructions: Likely you had seizure episode. Start taking Keppra 500 mg twice daily and follow with neurologist tomorrow Prescriptions: New levetiracetam [Keppra] 500 mg tablet 500 mg PO BID Qty: 60 RF: 0 No Action ropinirole 1 mg tablet 3 mg PO BEDTIME RF: 0 topiramate 50 mg tablet 50 mg PO BEDTIME RF: 0 sodium fluoride-pot nitrate [PreviDent 5000 Sensitive] 1.1-5 % paste 1 applic dental BID RF: 0 acetaminophen 325 mg Tablet 650 mg PO Q6H PRN (Reason: Headache/Pain Mild Scale (1-3)) Qty: 1 RF: 0 nicotine (polacrilex) 2 mg Gum 2 mg buccal Q2H PRN (Reason: Nicotine Cravings) Qty: 1 RF: 0 gabapentin 400 mg Capsule 400 mg PO DAILY Qty: 1 RF: 0 lorazepam 0.5 mg Tablet 1 mg PO Q4H PRN (Reason: Anxiety) Qty: 1 RF: 0 magnesium hydroxide [Milk of Magnesia] 400 mg/5 mL Suspension 30 ml PO DAILY PRN (Reason: Constipation) Qty: 1 RF: 0 buprenorphine-naloxone 8-2 mg Tablet, Sublingual 1 tab sublingual DAILY@1700 Qty: 1 RF: 0 MAG-AL 200-200 mg/5 mL Suspension 30 ml PO Q6H PRN (Reason: Heartburn/Nausea) Qty: 1 RF: 0 buprenorphine-naloxone [Suboxone] 8-2 mg Film 1 film sublingual DAILY Qty: 1 RF: 0 valacyclovir 500 mg tablet 500 mg PO DAILY Qty: 1 RF: 0 doxepin 50 mg capsule PO RF: 0 Vivitrol 380 mg suspension,extended rel recon IM RF: 0 clonidine HCl 0.1 mg tablet extended release 12 hr 0 mg PO RF: 0 aripiprazole 2 mg tablet 5 mg PO DAILY 30 Days Qty: 75 RF: 0 clonidine HCl 0.1 mg tablet 0.1 mg PO Q4H PRN (Reason: Anxiety/Restlessness) Qty: 1 RF: 0 clonidine HCl 0.2 mg tablet 0.2 mg PO BEDTIME Qty: 1 RF: 0 dextroamphetamine-amphetamine 20 mg tablet 20 mg PO TID 30 Days Qty: 90 RF: 0 gabapentin 800 mg tablet 800 mg PO BEDTIME 90 Days Qty: 90 RF: 0 hydroxyzine HCl 25 mg tablet 50 mg PO RQ4H PRN (Reason: Anxiety/Restlessness) Qty: 1 RF: 0 naratriptan 2.5 mg tablet 2.5 mg PO DIRECTED 60 Days Qty: 60 RF: 0 nicotine 14 mg/24 hr patch 24 hour 14 mg transdermal DAILY 1 Days Qty: 14 RF: 0 ondansetron 4 mg tablet,disintegrating 4 mg translingual Q6H PRN (Reason: Nausea) Qty: 1 RF: 0 phenobarbital 30 mg tablet 60 mg PO TID 30 Days Qty: 180 RF: 0 trazodone 50 mg tablet 50 mg PO BEDTIME PRN (Reason: Insomnia) Qty: 1 RF: 0 venlafaxine 75 mg capsule,extended release 24hr 75 mg PO DAILY 30 Days Qty: 30 RF: 0 venlafaxine 37.5 mg capsule,extended release 24hr 37.5 mg PO DAILY 30 Days Qty: 30 RF: 0 Referrals: Juan Lopez MD [Physician] - 1 week
--- NOTE | 2020-10-13 23:42 | ECG_ITS ---
Test Reason : FALL Blood Pressure : / mmHG Vent. Rate : 095 BPM Atrial Rate : 095 BPM P-R Int : 148 ms QRS Dur : 092 ms QT Int : 350 ms P-R-T Axes : 051 052 029 degrees QTc Int : 439 ms Normal sinus rhythm Normal ECG When compared to the previous EKG of 21 jun 2020, no significant change noted Referred By: Adonis Sanchez Electronically Signed By:SANDRA BURRIS
[2020-10-14 00:29] LABS: Basophils Percent Auto 0.3 % (0-2); Eosinophils Percent Auto 0.1 % (0-4); Hematocrit 42.2 % (37-47); Hemoglobin 13.7 g/dl (12.0-16.0); Imm Gran Abs Auto 0.08 X10*3/uL (0.00-0.03); Imm Gran Pct Auto 0.5 % (0.0-0.4); Lymphocytes Absolute Auto 2.7 X10*3/uL (1.2-4.9); Lymphocytes Percent Auto 17.6 % (20-40); MANUAL DIFF FLAG NO; Mean Corpuscular HGB Conc 32.5 g/dl (31.0-35.0); Mean Corpuscular Volume 92.5 fL (80-98); Mean Platelet Volume 9.7 fL (9.4-12.3); Monocytes Percent Auto 6.2 % (2-11); Neutrophils Absolute Auto 11.6 X10*3/uL (2.0-8.3); Neutrophils Percent Auto 75.3 % (45-73); Platelet Count 352 X10*3/uL (160-400); Red Blood Count 4.56 X10*6/uL (4.20-5.50); Red Cell Distribution Width 15.2 % (11.0-16.0); White Blood Count 15.4 X10*3/uL (4.8-10.8)
[2020-10-14] MEDS: levETIRAcetam 1,000 MG in 0.9 % Sodium Chloride 100 ML 400 MG IV (00:39)
[2020-10-14] MEDS: ondansetron HCL 4 MG/2 ML VIAL IVPUSH (00:39)
[2020-10-14] MEDS: 0.9 % Sodium Chloride 1,000 ML 999 ML IVCONT (00:45)
[2020-10-14 01:01] LABS: Anion Gap 15 (12-20); Blood Urea Nitrogen 14 mg/dL (9-16); Calcium 8.9 mg/dL (8.4-10.2); Carbon Dioxide 26 mmol/L (22-29); Chloride 102 mmol/L (96-108); Creatinine Clr Calc Pharmacy 102.6; Estimated Glomerular Filt Rate > 60; Glucose Random 126 mg/dL (60-115); Potassium 4.1 mmol/L (3.3-5.1); Sodium 139 mmol/L (135-145)
[2020-10-14 01:08] LABS: HCG Quantitative < 2 mIU/mL
[2020-10-14] MEDS: Ketorolac Tromethamine 30 MG/ML VIAL IVPUSH (02:13)
--- NOTE | 2020-10-14 03:46 | PC.NURSE ---
THIS NURSE TRYING TO TURN OVER ROOM AND HAVE THE DISCHARGED PATIENT LEAVE. PATIENT ASKING ABOUT GETTING HER TRANSPORTATION HOME. STATING [facility] ARE NOT RUNNING AT THIS TIME AND THE BUS WILL NOT BE AROUND UNTIL THE MORNING, BUT SHE WAS MORE THAN WELCOME TO USE THE WAITING ROOM PHONE AND WAIT FOR TRANSPORTATION IN THE MORNING. CONVERSATION STARTED POLITELY ENOUGH. PATIENT THEN YELLING AT THIS NURSE GET THE FUCK OUT, I GET THAT YOU HAVE OTHER PATIENTS THAT NEED THE ROOM I GET IT, BUT I DON'T HAVE A RIDE. PATIENT THEN SLAMMING THE DOOR TO THE ROOM ON THIS NURSE. SECURITY CALLED FOR PATIENT SHE CONTINUES TO YELL AND SLAM DOORS. PATIENT ESCORTED TO THE WAITING ROOM, STATING SHE WILL BE CALM THERE, CONTINUES TO YELL, SECURITY HAVING A PRESENCE IN THE WAITING ROOM.
== END 2020-10-14 03:47 | disposition home or self-care (01) ==
PROVIDERS: Emergency Provider Internal Medicine
DX: R56.9 Unspecified convulsions (principal); R55 Syncope and collapse; F17.210 Nicotine dependence, cigarettes, uncomplicated; Z71.6 Tobacco abuse counseling; R51.9 Headache, unspecified
CPT/HCPCS: 36415; 70450; 80048; 84702; 85025; 93005; 96361; 96365; 96375; 99284; J1885; J1953; J2405

== ENCOUNTER 2021-04-02 13:00 | Outpatient (REF) | payer BC, MEDICAID, SELFPAY | END 2021-04-02 13:01 | disposition home or self-care (01) | LOC: HO.NEURO 13:00 | PROVIDERS: Visit Provider Psychiatry & Neurology Neurology | DX: G40.909 Epilepsy, unspecified, not intractable, without status epilepticus (principal) | CPT/HCPCS: 95708; 95957 ==

== ENCOUNTER 2021-04-10 08:53 | Outpatient (REF) | payer BC, MEDICAID, SELFPAY ==
--- NOTE | ~2021-04-10 | US_ITS ---
EXAMINATION: US THYROID CLINICAL INFORMATION: Hypothyroidism, unspecified. COMPARISON: None TECHNIQUE: Linear transducer grayscale and color Doppler examination with attention to the region of the thyroid. FINDINGS: SIZE: Measurements of the thyroid lobes and nodules are given in sagittal, anteroposterior and transverse dimensions respectively. Right Thyroid Lobe: 4.3 x 1.4 x 2.2 cm, volume 7.0 mL. Parenchyma: The gland echotexture is heterogeneous. Thyroid vascularity is normal. Left Thyroid Lobe: 4.2 x 1.2 x 1.5 cm, volume 3.8 mL. Parenchyma: The gland echotexture is heterogeneous. Thyroid vascularity is normal. Isthmus: 0.3 cm in maximum AP dimension. Estimated total number of nodules greater than or equal to 1 cm: 0. Display Maker nodules are described as follows: 1. Location: Right lower pole. Size: 0.6 x 0.5 x 0.6 cm, volume 0.09 mL. Nodule characteristics: Composition: Solid/almost completely solid (2). Echogenicity: Hypoechoic (2). Shape: Not taller than wide (0). Margins: Smooth (0). Echogenic Foci: None (0). ACR TI-RADS total points: 4 ACR TI-RADS category: 4 2. Location: Left mid pole. Size: 0.7 x 0.5 x 0.6 cm, volume 0.11 mL. Nodule characteristics: Composition: Solid/almost completely solid (2). Echogenicity: Isoechoic (1). Shape: Not taller than wide (0). Margins: Smooth (0). Echogenic Foci: None (0). ACR TI-RADS total points: 3 ACR TI-RADS category: 3 3. Location: Left lower pole. Size: 0.9 x 0.8 x 0.7 cm, volume 0.27 mL. Nodule characteristics: Composition: Solid/almost completely solid (2). Echogenicity: Hyperechoic (1). Shape: Not taller than wide (0). Margins: Smooth (0). Echogenic Foci: None (0). ACR TI-RADS total points: 3 ACR TI-RADS category: 3 NODES: No lymphadenopathy is seen in the tissue surrounding the thyroid gland. US/US thyroid IMPRESSION: Small thyroid gland with nonsuspicious bilateral thyroid nodules. Recommend continued yearly follow-up. ACR TI-RADS RECOMMENDATION REFERENCE: Ultrasound-guided fine-needle aspiration, followup ultrasound, no further follow up. * TR1 (0 point) and TR 2 (2 points): No FNA or follow up * TR3 (3 points): FNA if more than or equal to 2.5 cm in maximum dimension, followup ultrasound in 1, 3 and 5 years if 1.5 to 2.4 cm in maximum dimension. * TR4 (4-6 points): FNA if more than or equal to 1.5 cm in maximum dimension, followup ultrasound in 1, 2, 3 and 5 years if 1 to 1.4 cm in maximum dimension. * TR5 (more than or equal to 7 points): FNA if more than or equal to 1 cm in maximum dimension, followup ultrasound every year for 5 years if 0.5 to 0.9 cm in maximum dimension. * TR3, TR4 or TR5 nodules that are below the size threshold for follow up receive no follow up.
== END 2021-04-10 08:54 | disposition home or self-care (01) ==
LOC: HO.US 08:53
PROVIDERS: Visit Provider Internal Medicine
DX: E03.9 Hypothyroidism, unspecified (principal)
CPT/HCPCS: 76536

== ENCOUNTER 2021-08-09 17:44 | Outpatient (REF) | payer OTHER, SELFPAY ==
--- NOTE | ~2021-08-09 | MR_ITS ---
EXAMINATION: MR BRAIN WITHOUT CONTRAST CLINICAL INFORMATION: Epilepsy, unspecified, not intractable without status migrainosus. COMPARISON: None available. TECHNIQUE: Multiplanar, multisequence imaging of the brain was performed without intravenous contrast. FINDINGS: There is no acute infarction, mass, hemorrhage, or extra-axial collection. The ventricles, sulci, and basilar cisterns are normal in size and configuration. The brain parenchyma signal appears normal. The hippocampi demonstrate normal size, signal, and morphology and appear symmetric. There is no evidence of focal cortical dysplasia. No bear matter heterotopia is seen. The flow voids of the major intracranial arteries appear intact. The bones and extracranial soft tissues are unremarkable. MR/MR head/brain wo con IMPRESSION: No acute intracranial abnormality identified. No definite epileptogenic nidus is seen.
== END 2021-08-09 17:45 | disposition home or self-care (01) ==
LOC: HO.MRI 17:44
PROVIDERS: Visit Provider Internal Medicine
DX: G40.909 Epilepsy, unspecified, not intractable, without status epilepticus (principal)
CPT/HCPCS: 70551

== ENCOUNTER 2021-10-10 12:47 | Outpatient (REF) | payer OTHER, SELFPAY ==
[2021-10-10 15:29] LABS: Fentanyl, urine Not Detected (Not Detect)
[2021-10-19 06:52] LABS: Buprenorphine 149; Naloxone 1785; Norbuprenorphine >2000
[2021-10-19 06:54] LABS: Fentanyl, Ur NEGATIVE
== END 2021-10-10 12:48 | disposition home or self-care (01) ==
LOC: HO.HMGCLDS 12:47
PROVIDERS: PCP Internal Medicine; Visit Provider Internal Medicine Addiction Medicine
DX: F11.20 Opioid dependence, uncomplicated (principal)
CPT/HCPCS: 80307; 80348; 80354; 80362